=== PATIENT | male | born 1950 | race Caucasian/White ===

== ENCOUNTER → 2023-10-02 | Outpatient (CLI) | payer MEDICARE, OTHER ==
--- NOTE | 2023-10-09 16:26 | CT ---
EXAMINATION TYPE: CT ChestAbdPelvis wo con DATE OF EXAM: 10/02/2023 COMPARISON: Outside CT 06/22/2023 HISTORY: 73-year-old male SOB, R91.8 OTHER NONSPECIFIC ABNORMAL FINDING OF LUNG F TECHNIQUE: Contiguous axial scanning of the chest, abdomen, and pelvis without IV contrast. Coronal a nd sagittal reconstructions performed. CT DLP: 1663 mGycm Automated exposure control for dose reduction was used. FINDINGS: CHEST: Heart is mildly enlarged without pericardial effusion. Extensive three-vessel coronary artery calcifi cations are present and are a marker for coronary artery disease. Ectatic ascending aorta 3.7 cm. Moderate atherosclerotic arch calcifications. Commensurate vessel bra nching anatomy. Mildly enlarged caliber to the main right and left pulmonary arteries up to 2.8 cm suggest underlying pulmonary hypertension. Stable subcarinal lymph node at 1.7 cm. Lack of IV contrast limits assessment for hilar adenopathy. N o enlarged mediastinal adenopathy otherwise seen. Interval decrease in the patient's bilateral effusions. Small right and trace left effusions remain. There is some distortion in the lower lungs suggesting a component of pleural parenchymal scarring. * Multifocal subpleural and peribronchovascular irregular opacities persist throughout the bilateral lungs. * These are either stable or slightly decreased in size, largest right infrahilar level measuring 5. 1 cm, not significantly changed. * There is a 1 cm irregular nodule posteromedial right upper lobe axial image 108 versus 9 mm, previ ously. * 1.6 cm right upper lobe nodule, axial image 86, not significantly changed. ABDOMEN: Tiny hiatal hernia. Approximately 4 small layering gallstones measuring up to 5 mm. The previous gallbladder hydrops has resolved. Otherwise, noncontrast appearance of the liver, kidneys, spleen, atrophic pancreas show no gross body . Mild diffuse thickening of the adrenal glands redemonstrated without discrete nodularity. Aortobiiliac endovascular stent graft again noted. Circle sac caliber 6.9 x 6.3 cm versus 6.9 x 6.4 c m, previously. Not significantly changed. Scattered prominent fluid-filled small bowel loops throughout the abdomen without dilated small bowel , free fluid, or free air. Normal appendix. There is moderate stool burden. No pericolic inflammatory change. No mesenteric or retroperitoneal adenopathy. PELVIS: Bladder partially distended. Prostate gland is enlarged at 5.3 cm wide. Moderate to severe atheroscle rotic calcifications throughout the visualized arteries in the groin and upper thighs. Associated sca rring in the inguinal regions with resolution of previous fluid collections. No pelvic lymphadenopath y. BONES: Moderate to severe degenerative change of the hips. DISH throughout the mid and lower thoracic spine. Moderate degenerative disc disease lower lumbar spine. IMPRESSION: 1. LUNGS SHOW IMPROVING PLEURAL EFFUSIONS WITH RESIDUAL SMALL RIGHT AND TRACE LEFT EFFUSIONS. 2. NUMEROUS BILATERAL PERIBRONCHOVASCULAR AND SUBPLEURAL IRREGULAR OPACITIES PERSIST. THESE ARE EITHE R STABLE OR SLIGHTLY SMALLER COMPARED TO 06/22/2023. CONSIDER ATYPICAL FUNGAL/MYCOBACTERIAL INFECTIONS OR VASCULITIS SUCH FRANCINE'S SOME POSSIBLE DIFFERENTIAL CONSIDERATIONS. NEOPLASTIC ETIOLOGY IS NOT ENTIRELY EXCLUDED GIVEN SIMILAR NODULAR APPEARANCE TO SOME OF THE AREAS. ONGOING SURVEILLANCE FO LLOW-UP RECOMMENDED. CORRELATE WITH ANY KNOWN TISSUE DIAGNOSIS. 3. COPD, PULMONARY ARTERIAL HYPERTENSION, EXTENSIVE THREE-VESSEL CORONARY ARTERY CALCIFICATIONS. TINY HIATAL HERNIA, CHOLELITHIASIS, MODERATE STOOL BURDEN. PROSTATOMEGALY OF 5.3 CM WIDE. 4. ABDOMINAL AORTOBIILIAC ENDOVASCULAR STENT GRAFT WITH STABLE BOIS FORTE SAC CALIBER OF 6.9 CM.
== END | disposition home or self-care (01) ==
LOC: RADCTMAIN 10:11
PROVIDERS: ATTEND Internal Medicine Critical Care Medicine
DX: K80.20 Calculus of gallbladder without cholecystitis without obstruction (principal); R10.2 Pelvic and perineal pain; R06.02 Shortness of breath; J90 Pleural effusion, not elsewhere classified; I27.21 Secondary pulmonary arterial hypertension; R91.8 Other nonspecific abnormal finding of lung field; I25.10 Atherosclerotic heart disease of native coronary artery without angina pectoris; J44.9 Chronic obstructive pulmonary disease, unspecified; N40.0 Benign prostatic hyperplasia without lower urinary tract symptoms; R19.5 Other fecal abnormalities; Z95.828 Presence of other vascular implants and grafts
CPT/HCPCS: 71250; 74176